=== PATIENT | female | born 1960 | race Caucasian/White ===

== ENCOUNTER 2020-09-19 17:25 | Emergency (ER) | payer OTHER ==
[~2020-09-19] VITALS: Ht 162.6 cm; Wt 65.1 kg
--- NOTE | 2020-09-19 19:42 | PHYS DOC ---
General Adult EDM: Chief Complaint: HEAD INJURY/TRAUMA HPI: HPI: 59-year-old female presents with right facial pain. Patient was out jogging when she tripped and fell down onto her right face. She abrasions to the right cheek on the ground. She has a small hole that does avoid through outside of the vermilion border. She states that the pain is tolerable. She is mostly here for the laceration. She feels like her bite feels abnormal, but none of her teeth feel loose. She has no current bleeding in her mouth. She denies change in vision or significant headache. Review of Systems: Review of Systems: Constitutional: Denies fever or chills Eyes: Denies change in visual acuity HENT: Facial pain, abrasion, laceration right face Respiratory: Denies cough or shortness of breath Cardiovascular: Denies chest pain or edema GI: Denies abdominal pain, nausea, vomiting, bloody stools or diarrhea : Denies dysuria Musculoskeletal: Denies back pain or joint pain Integument: Denies rash Neurologic: Denies headache, focal weakness or sensory changes Endocrine: Denies polyuria or polydipsia Lymphatic: Denies swollen glands Psychiatric: Denies depression or anxiety Allergies: Allergies: Allergies Coded Allergies Type Severity Reaction Last Updated Verified No Known Drug Allergies 09/19/20 No Physical Exam: PE: Constitutional: Well developed, well nourished, no acute distress, non-toxic appearance. [] HENT: Normocephalic, abrasion right cheek, bilateral external ears normal, oropharynx moist, no oral exudates, nose normal. [] Eyes: PERRLA, EOMI, conjunctiva normal, no discharge. [] Neck: Normal range of motion, no tenderness, supple, no stridor. [] Cardiovascular:Heart rate regular rhythm, no murmur [] Lungs & Thorax: Bilateral breath sounds clear to auscultation [] Abdomen: Bowel sounds normal, soft, no tenderness, no masses, no pulsatile masses. [] Skin: 2 mm laceration of the right cheek penetrates all the way through the inside of the mouth. [] Back: No tenderness, no CVA tenderness. [] Extremities: No tenderness, no cyanosis, no clubbing, ROM intact, no edema. [] Neurologic: Alert and oriented X 3, normal motor function, normal sensory function, no focal deficits noted. [] Psychologic: Affect normal, judgement normal, mood normal. [] EKG: EKG: [] Radiology/Procedures: Radiology/Procedures: [] Impressions: Exam: CT head and maxillofacial without contrast INDICATION: Fall while running TECHNIQUE: Sequential axial images through the head and maxillofacial were obtained without the administration of IV contrast. Comparisons: None FINDINGS: Head: No focal parenchymal lesion or hemorrhage is identified. There is no midline shift or sulcal effacement. No acute vascular territory infarction is identified. Escobar-white distinction is preserved. The ventricular system is within normal limits without compression hydrocephalus. The basal cisterns are well maintained. Face: Extra soft tissue scalp contusion overlying the right zygomatic process. The visualized portions of the paranasal sinuses and mastoid air cells are well-pneumatized. Nondisplaced fractures involving the anterior and posterior wall of the right maxillary sinus. Hemorrhagic products noted within the right maxillary sinus. IMPRESSION: 1. Nondisplaced fractures involving the anterior and posterior wall of the right maxillary sinus with hemorrhagic products in the right maxillary sinus. 2. No acute intracranial abnormality. Exposure: One or more of the following in the visualized dose reduction techniques were utilized for this examination: 1. Automated exposure control 2. Adjustment of the MA and/or KV according to patient size Use of iterative of reconstructive technique Electronically signed by: Carmen Ramírez MD (09/19/2020 8:01 PM) [facility] DICTATED AND SIGNED BY: CARMEN RAMÍREZ MD DATE: 09/19/202000 CC: BROWN COREY DO; PCP,NO ~ Heart Score: Risk Factors: Risk Factors: DM, Current or recent (<one month) smoker, HTN, HLP, family history of CAD, obesity. Risk Scores: Score 0 - 3: 2.5% MACE over next 6 weeks - Discharge Home Score 4 - 6: 20.3% MACE over next 6 weeks - Admit for Clinical Observation Score 7 - 10: 72.7% MACE over next 6 weeks - Early Invasive Strategies Course & Med Decision Making: Course & Med Decision Making Pertinent Labs and Imaging studies reviewed. (See chart for details) Patient does have an anterior and posterior fracture of the right maxillary sinus. There is hemorrhage in the sinus. See official read for more details. I have repaired the patient's small external laceration with skin adhesive. See note below for more details. I will not fix her anterior side of her laceration as it will heal quickly on its own. I am consulting maxillofacial surgery to make sure the patient does not need surgery for her fracture. We will also cover her with a tetanus shot in the ED and a gram of Rocephin. I spoke with Dr. Demarco at and she is advised the patient does not necessarily need maxillofacial follow-up. This is likely not a surgical case. She can go home and follow-up with primary care. The patient is stable for discharge at this time. [] Dragon Disclaimer: Dragon Disclaimer: This electronic medical record was generated, in whole or in part, using a voice recognition dictation system. Laceration Repair Lac Repair Indication: [] 2 mm laceration of the right upper lip not including vermilion border. Procedure: The patient patient gave me verbal permission for tissue adhesive repair of her small laceration. Wound was thoroughly irrigated with normal saline under pressure. No foreign bodies were found. It is a through and through laceration to the anterior of the mouth. I applied 2 layers of skin adhesive over the exterior portion of the wound. No repair was done on the inside of her mouth. She was given Tdap and antibiotics. No further dressing was applied. Total repaired wound length: 2 mm. Other Items: None The patient tolerated the procedure well. Complications: none. Departure Departure: Impression: Primary Impression: Right maxillary fracture Qualified Codes: S02.40CA - Maxillary fracture, right side, initial encounter for closed fracture Disposition: 01 DC HOME SELF CARE/HOMELESS Condition: STABLE Referrals: PCP,NO (PCP) Patient Instructions: Facial Fracture BROWN COREY DO Sep 19, 2020 19:42
--- NOTE | 2020-09-19 20:04 | RAD ---
Exam: CT head and maxillofacial without contrast INDICATION: Fall while running TECHNIQUE: Sequential axial images through the head and maxillofacial were obtained without the administration of IV contrast. Comparisons: None FINDINGS: Head: No focal parenchymal lesion or hemorrhage is identified. There is no midline shift or sulcal effacement. No acute vascular territory infarction is identified. Escobar-white distinction is preserved. The ventricular system is within normal limits without compression hydrocephalus. The basal cisterns are well maintained. Face: Extra soft tissue scalp contusion overlying the right zygomatic process. The visualized portions of the paranasal sinuses and mastoid air cells are well-pneumatized. Nondisplaced fractures involving the anterior and posterior wall of the right maxillary sinus. Hemorrhagic products noted within the right maxillary sinus. IMPRESSION: 1. Nondisplaced fractures involving the anterior and posterior wall of the right maxillary sinus with hemorrhagic products in the right maxillary sinus. 2. No acute intracranial abnormality. Exposure: One or more of the following in the visualized dose reduction techniques were utilized for this examination: 1. Automated exposure control 2. Adjustment of the MA and/or KV according to patient size Use of iterative of reconstructive technique Electronically signed by: Viridiana Troy MD (09/19/2020 8:01 PM) [facility]
[2020-09-19] MEDS ORDERED: cefTRIAXone SODIUM 1 GM VIAL ONE (20:19)
[2020-09-19] MEDS ORDERED: DIPH,PERTUSS(ACELL),TET VAC/PF 0.5 ML SYRINGE. VAX IM ONE ×2 (20:20→20:30)
[2020-09-19] MEDS ORDERED: cefTRIAXone IM 1 GM VIAL IM ONE (20:30)
[2020-09-19 21:00] VITALS: BP 124/78
== END 2020-09-19 21:02 | disposition home or self-care (01) ==
LOC: ER 17:25
DX: S02.40 Fracture of malar, maxillary and zygoma bones, unspecified (principal); S01.511A Laceration without foreign body of lip, initial encounter; W01.0XXA Fall on same level from slipping, tripping and stumbling without subsequent striking against object, initial encounter; Y93.89 Activity, other specified; Y92.89 Other specified places as the place of occurrence of the external cause; Y99.8 Other external cause status
CPT/HCPCS: 12011; 70450; 70486; 90471; 90715; 96372; 99285; J0696; 99284-25